=== PATIENT | female | born 1960 | race Caucasian/White ===

== ENCOUNTER 2021-11-12 08:00 | Day surgery (SDC) | payer BC ==
[~2021-11-12 08:00] MED LIST: Albuterol 0.083% 2.5 MG/3 ML Neb Soln NEB PRN; HYDROmorphone 1 MG/ML Syringe IVPUSH PRN; Lactated Ringers 1,000 ML IV SCH; Metoclopramide 10 MG/2 ML SDV IVPUSH PRN; Morphine 4 MG/ML VIAL IVPUSH PRN; Naloxone 0.4 MG/ML SDV IVPUSH PRN; Ondansetron 4 MG/2 ML SDV IVPUSH PRN; fentaNYL 100 MCG/2 ML SDV IVPUSH PRN
[2021-11-12] MEDS ORDERED: Midazolam 1 MG/ML 2 ML SDV ONE (09:07)
[2021-11-12] MEDS ORDERED: fentaNYL 100 MCG/2 ML SDV ONE (09:07)
[2021-11-12] MEDS ORDERED: Propofol 200 MG/20 ML SDV ONE (09:07)
[2021-11-12] MEDS ORDERED: Lidocaine 1% 5 ML VIAL ONE (09:08)
[2021-11-12] MEDS ORDERED: Esmolol 100 MG/10 ML SDV ONE (09:08)
[2021-11-12] MEDS ORDERED: Ondansetron 4 MG/2 ML SDV ONE (12:10)
== END 2021-11-12 13:30 | disposition home or self-care (01) ==
LOC: MW.SDS 08:00
PROVIDERS: ATTEND Obstetrics & Gynecology
DX: N84.0 Polyp of corpus uteri (principal); E78.00 Pure hypercholesterolemia, unspecified; E66.9 Obesity, unspecified; Z98.890 Other specified postprocedural states; Z91.041 Radiographic dye allergy status; Z87.891 Personal history of nicotine dependence; Z68.41 Body mass index [BMI] 40.0-44.9, adult
CPT/HCPCS: 58558; J2250; J2405; J2704; J3010; J3490; J7120; 00952; J0330